=== PATIENT | male | born 2000 | race African-American/Black ===

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

== ENCOUNTER 2022-03-02 12:21 | Emergency (ER) | payer OTHER ==
[~2022-03-02] VITALS: Ht 188 cm; Wt 104.3 kg
[~2022-03-02 12:21] MED LIST changes: +ALBUTEROL2.5 MG/3 M IH; +ZOFRAN8 MG PO
== END 2022-03-02 17:35 | disposition home or self-care (01) ==
LOC: EMR PED 12:21
DX: R10.13 Epigastric pain (principal); R11.10 Vomiting, unspecified; R19.7 Diarrhea, unspecified; Z20.822 Contact with and (suspected) exposure to COVID-19; Z88.8 Allergy status to other drugs, medicaments and biological substances

== ENCOUNTER 2023-06-16 20:30 | Emergency (ER) | payer OTHER ==
[~2023-06-16] VITALS: Ht 177.8 cm; Wt 125.2 kg
== END 2023-06-16 22:21 | disposition home or self-care (01) ==
LOC: ER 20:30
DX: K59.01 Slow transit constipation (principal); Z88.8 Allergy status to other drugs, medicaments and biological substances